=== PATIENT | female | born 1985 | race Caucasian/White ===

== ENCOUNTER 2017-03-29 18:39 | Emergency (ER) | payer MEDICAID ==
[~2017-03-29] VITALS: Ht 162.6 cm; Wt 70.0 kg
[2017-03-29] MEDS ORDERED: ACETAMINOPHEN 500MG TABLET PO ONE (20:00)
[2017-03-29 21:47] LABS: CLARITY URINE CLEAR (CLEAR); COLOR URINE YELLOW (YELLOW); GLUCOSE URINE NEGATIVE (NEGATIVE); KETONES URINE 4+ (NEGATIVE); LEUKOCYTE ESTERASE URINE TRACE (NEGATIVE); NITRITE URINE NEGATIVE (NEGATIVE); OCCULT BLOOD URINE NEGATIVE (NEGATIVE); PROTEIN URINE NEGATIVE (NEGATIVE); SPECIFIC GRAVITY URINE 1.018 (1.005-1.030); UROBILINOGEN URINE 0.2 E.U./dL (0.2-1.0)
[2017-03-29] MEDS ORDERED: ONDANSETRON 4MG ODT PO NR (22:00)
[2017-03-29] MEDS ORDERED: AZITHROMYCIN 500 MG TABLET PO NR (22:00)
[2017-03-29] MEDS ORDERED: LIDOCAINE HCL 1% 20ML VIAL (Pyxis) INJ INFIL NR (22:00)
[2017-03-29] MEDS ORDERED: CEFTRIAXONE SODIUM 250 MG/VIAL IM NR (22:00)
[2017-03-29 22:16] LABS: RBC URINE 0-2 /hpf (0-2)
[2017-03-29 22:17] LABS: BACTERIA URINE 2+; MUCUS URINE TRACE /lpf (< = 2+); SQUAMOUS EPITHELIAL CELL URINE 1+ /lpf (RARE/1+)
[2017-03-30 11:42] VITALS: BP 103/54
== END 2017-03-30 13:07 | disposition home or self-care (01) ==
LOC: ER 18:59
DX: M54.5 Low back pain (principal); Z59.0 Homelessness
CPT/HCPCS: 81001; 81025; 96372; 99284; J0696; J3490; Q0162